=== PATIENT | female | born 1975 | race Caucasian/White ===

== ENCOUNTER 2022-07-10 09:00 | Outpatient (RCR) | payer BC ==
[~2022-07-10 09:00] MED LIST: ATIVAN1 MG PO; LISINOPRIL10 MG PO; MOTRIN200 MG PO; NORCO 7.5-3251 EACH PO; ULTRAM50 MG PO
== END 2022-07-11 ==
LOC: OT 09:00
PROVIDERS: ATTEND Plastic Surgery
DX: S63.285A Dislocation of proximal interphalangeal joint of left ring finger, initial encounter (principal); S62.645 Nondisplaced fracture of proximal phalanx of left ring finger; M79.645 Pain in left finger(s); M25.642 Stiffness of left hand, not elsewhere classified; R53.1 Weakness
CPT/HCPCS: 97010 ×3; 97022; 97110 ×5; 97140; 97165; L3933

== ENCOUNTER 2022-07-31 09:00 | Outpatient (RCR) | payer BC | END 2022-08-08 | LOC: OT 09:00 | PROVIDERS: ATTEND Plastic Surgery | DX: S62.645 Nondisplaced fracture of proximal phalanx of left ring finger (principal); M79.645 Pain in left finger(s); M25.642 Stiffness of left hand, not elsewhere classified; R53.1 Weakness ==

== ENCOUNTER 2022-09-06 09:52 | Outpatient (RCR) | payer BC | END 2022-09-08 | LOC: OT 09:52 | PROVIDERS: ATTEND Plastic Surgery | DX: S62.605A Fracture of unspecified phalanx of left ring finger, initial encounter for closed fracture (principal) ==

== ENCOUNTER 2022-09-28 08:56 | Outpatient (RCR) | payer BC | END 2022-10-08 | LOC: OT 08:56 | PROVIDERS: ATTEND Plastic Surgery | DX: S62.605A Fracture of unspecified phalanx of left ring finger, initial encounter for closed fracture (principal) ==

== ENCOUNTER 2022-10-11 12:52 | Outpatient (RCR) | payer BC | END 2022-11-08 | LOC: OT 12:52 | PROVIDERS: ATTEND Plastic Surgery | DX: S62.605A Fracture of unspecified phalanx of left ring finger, initial encounter for closed fracture (principal) ==